=== PATIENT | male | born 1965 | race African-American/Black ===

== ENCOUNTER 2018-08-03 23:39 | Emergency (ER) | payer OTHER ==
[2018-08-03 23:50] VITALS: BP 144/92
[2018-08-04 00:34] LABS: Basophils # (Auto) 0.1 K/mm3 (0.0-0.1); Basophils % (Auto) 1.1 % (0.0-1.8); Eosinophils # (Auto) 0.2 K/mm3 (0.0-0.4); Eosinophils % (Auto) 2.3 % (0.0-4.3); Hematocrit 42.7 % (35.5-45.6); Hemoglobin 14.3 gm/dl (11.8-15.2); Lymphocytes # (Auto) 2.3 K/mm3 (1.2-5.4); Lymphocytes % (Auto) 21.8 % (13.4-35.0); Mean Corpuscular HGB Conc 34 % (32-34); Mean Corpuscular Volume 92 fl (84-94); Monocytes # (Auto) 0.9 K/mm3 (0.0-0.8); Monocytes % (Auto) 8.3 % (0.0-7.3); Platelet Count 213 K/mm3 (140-440); Red Blood Count 4.65 M/mm3 (3.65-5.03); Red Cell Distribution Width 13.2 % (13.2-15.2)
[2018-08-04 00:42] LABS: BUN/Creatinine Ratio 21; Blood Urea Nitrogen 19 mg/dL (9-20); Calcium 9.1 mg/dL (8.4-10.2); Hemolysis Index 7
--- NOTE | 2018-08-04 04:42 | Emergency Department Report ---
ED Headache HPI - General Chief Complaint: Headache Stated Complaint: METZ/BLEEDING NOSE/NECK PAIN Time Seen by Provider: 08/04/18 04:42 - History of Present Illness Allergies/Adverse Reactions: Allergies contrast Allergy (Uncoded 05/07/13 06:46) Anaphylaxis Home Medications: Ambulatory Orders Lisinopril 20 mg PO DAILY 05/07/13 amLODIPine [Norvasc] 10 mg PO DAILY 05/07/13 Ibuprofen [Motrin 600 MG tab] 600 mg PO Q8H PRN #30 tablet 04/30/18 ED Review of Systems ROS: Stated complaint: METZ/BLEEDING NOSE/NECK PAIN Other details as noted in HPI ED Past Medical Hx - Past Medical History Previous Medical History?: Yes Hx Hypertension: Yes Hx Kidney Stones: Yes - Surgical History Past Surgical History?: Yes Additional Surgical History: Kidney Stone Surgery - Social History Smoking Status: Current Every Day Smoker Substance Use Type: None - Medications Home Medications: Home Medications Medication Instructions Recorded Confirmed Last Taken Type Lisinopril 20 mg PO DAILY 05/07/13 05/07/13 05/06/13 08:00 History 20mg amLODIPine [Norvasc] 10 mg PO DAILY 05/07/13 05/07/13 05/06/13 08:00 History 10mg Ibuprofen [Motrin 600 MG tab] 600 mg PO Q8H PRN #30 tablet 04/30/18 Unknown Rx ED Physical Exam - General Limitations: No Limitations ED Course Vital Signs 08/03/18 23:48 Temperature 97.3 F L Pulse Rate 87 Respiratory 20 Rate Blood Pressure 144/92 O2 Sat by Pulse 98 Oximetry ED Medical Decision Making - Lab Data Result diagrams: 08/04/18 00:07 08/04/18 00:07 Critical care attestation.: If time is entered above; I have spent that time in minutes in the direct care of this critically ill patient, excluding procedure time. ED Disposition Clinical Impression: Headache Disposition: ELOPED Is pt being admited?: No Does the pt Need Aspirin: No Condition: Undetermined Referrals: PRIMARY CARE, [Primary Care Provider] - 3-5 Days
== END 2018-08-04 04:45 | disposition left against medical advice (07) ==
LOC: ED 23:39
DX: R51 Headache (principal); Z53.21 Procedure and treatment not carried out due to patient leaving prior to being seen by health care provider
CPT/HCPCS: 36415; 80048; 85025